=== PATIENT | male | born 1940 | race Caucasian/White ===

== ENCOUNTER 2021-07-17 11:27 | Emergency (ER) | payer MEDICARE, SELFPAY ==
[2021-07-17 11:38] VITALS: BP 158/75; PULSE 39; RESP 16; TEMP 35.9; O2SAT 96
--- NOTE | 2021-07-17 12:24 | ECG_ITS ---
Measurements Intervals [place] Rate: 65 P: -1 CA: 148 QRS: 36 QRSD: 101 T: 25 QT: 428 QTc: 445 Interpretive Statements SINUS RHYTHM FREQUENT ATRIAL PREMATURE COMPLEXES INCOMPLETE RIGHT BUNDLE BRANCH BLOCK VOLTAGE CRITERIA FOR LVH BORDERLINE T WAVE ABNORMALITY- INFERIOR LEADS BASELINE ARTIFACT- II, III, AVR, AVL, AVF, V3-V6 ABNORMAL ECG Electronically Signed On 07-17-2021 13:13:04 [employer]GER [employer] by Emigdio Pugh D.O.
--- NOTE | 2021-07-17 12:41 | ED.DIZZY ---
HPI - Dizziness General Chief Complaint: Dizziness Stated Complaint: dizzy nausea high bp Time Seen by Provider: 07/17/21 12:25 Source: patient, family and RN notes reviewed Mode of arrival: ambulatory Limitations: no limitations History of Present Illness HPI Narrative: Abby is an 80-year-old male patient who [facility] into the [facility] accompanied by his grandson. 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 Patient ambulated to the ER complaining of extreme dizziness patient states he has checked his heart rate at home and has been in the thirties. On arrival here his heart rate was between 36 and 39. His blood pressure was 168/68. Patient states he usually has very low blood pressure and takes midodrine 3 times daily to keep his blood pressure greater than 120. 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 This pacemaker is supposed to pace the heart rate below 50. Patient is also complaining of severe nausea. MD elicited complaint: dizziness and lightheadedness Related Data Home Medications Medication Instructions Recorded Confirmed fludrocortisone 0.1 mg PO DAILY 07/17/21 07/17/21 midodrine 10 mg PO TID 07/17/21 07/17/21 omeprazole 40 mg PO DAILY 07/17/21 07/17/21 Allergies Allergy/AdvReac Type Severity Reaction Status Date / Time No Known Allergies Allergy Verified 07/17/21 12:03 Review of Systems Review of Systems: CONSTITUTIONAL: Denies body aches, fever, chills, or sweats. EYES: Denies visual changes, redness, or discharge. ENT: Denies rhinorrhea, congestion, sore throat, or otalgia. CARDIOVASCULAR: Denies chest pain, palpitations, or edema.+ dizziness RESPIRATORY: Denies cough or dyspnea. GASTROINTESTINAL: Denies abdominal pain,+ nausea, denies vomiting, or diarrhea. GENITOURINARY: Denies dysuria or hematuria. SKIN: Denies rash, itching, or wounds. MUSCULOSKELETAL: Denies back pain, joint pain, or myalgia. NEUROLOGIC: Denies headache, numbness, tingling, or weakness. PSYCH: Denies depression or anxiety. All systems reviewed & are unremarkable except as noted in HPI and below PMFSH Comments At time of signature, I have reviewed and agree with nursing past medical, surgical, social and family history unless otherwise noted. Please see nursing chart for further information. There is no relevant family history pertinent to the presenting complaint Exam Narrative: GENERAL: Well-appearing, well-nourished, and in no acute distress. HEAD: Normocephalic, atraumatic. EYES: EOMI. No redness or drainage. Conjunctivae normal. ENT: Mucous membranes pink and moist. Nares clear. No rhinorrhea. NECK: Normal AROM. Supple. No lymphadenopathy. CHEST: No respiratory distress. Clear to auscultation. HEART: Bradycardic rate. irregular rhythm No murmur appreciated. Normal peripheral pulses. ABDOMEN: Soft, nontender, nondistended, normal active bowel sounds. MUSCULOSKELETAL: No bony tenderness. EXTREMITIES: Normal range of motion. No edema. SKIN: Warm, dry, no rash. Capillary refill normal. Normal skin turgor. NEURO: No focal deficits. Alert and oriented x3. Gait steady. PSYCH: Normal affect. No signs of depression or anxiety. Course Vital Signs Vital signs: Vital Signs Temperature 35.9 C L 07/17/21 11:38 Pulse Rate 39 L 07/17/21 11:38 Respiratory Rate 16 07/17/21 11:38 Blood Pressure 158/75 H 07/17/21 11:38 Pulse Oximetry 96 07/17/21 11:38 Temperature 35.9 C L 07/17/21 11:38 Pulse Rate 40 L 07/17/21 12:42 Respiratory Rate 16 07/17/21 11:38 Blood Pressure 96/58 L 07/17/21 12:42 Pulse Oximetry 96 07/17/21 11:38 Transfer Transfered to: [facility] Transportation: Other (private car) Transfer rationale: bradycardia, nausea, dizziness Accepting physician: Jose Cox comments: report to wendy Santo to send by POV if stable. MDM - Dizziness Differential Diagnosis Differential diagnosis: Likely orthostatic hypotension and other
[2021-07-17 12:42] VITALS: BP 141/72; BP 171/99; BP 96/58; PULSE 39; PULSE 40; PULSE 53
== END 2021-07-17 13:23 | disposition short-term general hospital (02) ==
PROVIDERS: Emergency Provider Nurse Practitioner Family; PCP Internal Medicine
DX: I95.1 Orthostatic hypotension (principal); Z95.0 Presence of cardiac pacemaker
CPT/HCPCS: 93005; 99203; G0463